=== PATIENT | male | born 1970 | race Caucasian/White ===

== ENCOUNTER 2018-04-14 16:21 | Observation (INO) | payer OTHER ==
[~2018-04-14] VITALS: Ht 177.8 cm; Wt 68.4 kg
[2018-04-14 17:07] LABS: HEMATOCRIT 41.1 % (39.0-50.0); HEMOGLOBIN 13.9 g/dl (14.0-18.0); IMMATURE GRANULOCYTES 0.3 % (0.0-5.0); MEAN CELL VOLUME 90.3 fL CALC (80.0-100.0); MEAN CORPUSCULAR HGB 30.5 pG CALC (26.0-32.0); MEAN CORPUSCULAR HGB CONC 33.8 g/L CALC (32.0-36.0); NEUT# 4.06 thou/uL (1.82-7.42); RED BLOOD COUNT 4.55 mill/uL (4.70-6.10); RED CELL DISTRI WIDTH 12.1 % (11.5-15.5)
[2018-04-14 17:31] LABS: ANION GAP 13 (6-22 (CALC)); BUN 14 mg/dL (9-20); BUN/CREATININE RATIO 12 (12-20 (CALC)); CARBON DIOXIDE 27 mmol/l (22-30); CHLORIDE 102 mmol/l (95-108); CREATININE 1.1 mg/dL (0.7-1.3); GFR > 60 ML/MIN (>=60 (CALC)); GFR FOR AFR.AMER. > 60 ML/MIN (>=60 (CALC)); POTASSIUM 4.2 mmol/l (3.5-5.1); SODIUM 138 mmol/l (137-146)
[2018-04-14 20:10] VITALS: BP 127/71
[2018-04-15 04:10] VITALS: BP 94/64
[2018-04-15 06:19] LABS: CHOLESTEROL HDL RATIO 2.2 (<4.4 (CALC))
[2018-04-15 08:18] VITALS: BP 103/66
[2018-04-15 15:46] VITALS: BP 98/54
[2018-04-16 04:53] VITALS: BP 96/59
[2018-04-16 05:32] LABS: HEMATOCRIT 37.9 % (39.0-50.0); HEMOGLOBIN 12.9 g/dl (14.0-18.0); IMMATURE GRANULOCYTES 0.2 % (0.0-5.0); MEAN CORPUSCULAR HGB 31.3 pG CALC (26.0-32.0); NEUT# 3.23 thou/uL (1.82-7.42); RED BLOOD COUNT 4.12 mill/uL (4.70-6.10)
[2018-04-16 05:46] LABS: ALBUMIN 3.4 g/dL (3.2-5.0); ALKALINE PHOSPHATASE 60 u/l (38-126); ANION GAP 13 (6-22 (CALC)); BILIRUBIN, TOTAL 0.5 mg/dL (0.0-1.4); BUN 9 mg/dL (9-20); BUN/CREATININE RATIO 9 (12-20 (CALC)); CARBON DIOXIDE 25 mmol/l (22-30); CHLORIDE 105 mmol/l (95-108); CREATININE 0.9 mg/dL (0.7-1.3); GFR > 60 ML/MIN (>=60 (CALC)); GFR FOR AFR.AMER. > 60 ML/MIN (>=60 (CALC)); MAGNESIUM 1.9 mg/dL (1.6-2.3); POTASSIUM 4.1 mmol/l (3.5-5.1); SGOT/AST 55 u/l (17-59); SODIUM 139 mmol/l (137-146); TOTAL PROTEIN 5.9 g/dL (6.3-8.2)
[2018-04-16 07:40] VITALS: BP 133/71
[2018-04-16 15:22] VITALS: BP 90/55
[2018-04-16 19:25] VITALS: BP 102/55
[2018-04-17 04:00] VITALS: BP 92/58
[2018-04-17 08:10] VITALS: BP 109/79
[2018-04-17] MEDS ORDERED: KEFLEX500 M1 PO (13:33)
== END 2018-04-17 15:59 | DRG 603 ==
LOC: ED 16:21 → ED-I 16:48 → ED 16:48 → ED-I 18:21 → ED 18:40 → MS2 18:41
PROVIDERS: Family Medicine; Internal Medicine Nephrology; ADMIT Internal Medicine; ATTEND Internal Medicine
PROC: 0JDP3ZZ Extraction of Left Lower Leg Subcutaneous Tissue and Fascia, Percutaneous Approach (ICD-10-PCS; principal; 2018-04-16)
DX: L03.116 Cellulitis of left lower limb (principal); S81.812A Laceration without foreign body, left lower leg, initial encounter; D64.9 Anemia, unspecified; F17.200 Nicotine dependence, unspecified, uncomplicated; X99.1XXA Assault by knife, initial encounter
CPT/HCPCS: J1650